=== PATIENT | female | born 1990 | race Caucasian/White ===

== ENCOUNTER 2017-04-14 21:47 | Emergency (ER) | payer OTHER ==
[2017-04-14 22:08] VITALS: TEMP 98.5
--- NOTE | 2017-04-14 22:52 | ED.PDOC ---
History of Present Illness - General Chief Complaint: Back Pain or Injury Stated Complaint: back pain Time Seen by Provider: 04/14/17 22:05 Source: patient Exam Limitations: no limitations - History of Present Illness Initial Comments: Patricia Connor 26 y/o female with history of sharp chronic low back for the last 2 years stating it all started after delivery of her 2 babies .Denies history of trauma to lower back or work related injuries in the past.No bowel or bladder dysfunction ,no tingling,no weakness Timing/Duration: 4-6 hours Improving Factors: rest Worsening Factors: movement Associated Symptoms: other - pain radiation to back of left leg Allergies/Adverse Reactions: Allergies Amoxicillin Adverse Reaction (Verified 06/04/16 18:08) Nandrolone [From Anabolin] Adverse Reaction (Verified 06/04/16 18:08) Home Medications: Ambulatory Orders Ciprofloxacin [Cipro] 500 mg PO BID #20 tab 06/04/16 Methocarbamol [Robaxin] 750 mg PO BID PRN #20 tab 04/14/17 Prednisone 10 mg PO BID #14 scotty 04/14/17 Tramadol HCl 50 mg PO TID PRN #20 tab 04/14/17 Review of Systems - Review of Systems Constitutional: States: no symptoms reported EENTM: States: no symptoms reported Respiratory: States: no symptoms reported Cardiology: States: no symptoms reported Gastrointestinal/Abdominal: States: no symptoms reported Genitourinary: States: no symptoms reported Musculoskeletal: States: see HPI, back pain Skin: States: no symptoms reported Neurological: States: no symptoms reported Endocrine: States: no symptoms reported Hematologic/Lymphatic: States: no symptoms reported Past Medical History (General) - Patient Medical History Hx Seizures: No Hx Stroke: No Hx Dementia: No Hx Asthma: No Hx of COPD: No Hx Cardiac Disorders: No Hx Congestive Heart Failure: No Hx Pacemaker: No Hx Hypertension: No Hx Thyroid Disease: No Hx Diabetes: No Hx Gastroesophageal Reflux: No Hx Renal Disease: No Hx Cancer: No Hx of HIV: No Hx Hepatitis C: No Hx MRSA: No Surgical History: cholecystectomy, other - intradermal contraceptive implant - Vaccination History Hx Tetanus, Diphtheria Vaccination: Yes Hx Influenza Vaccination: Yes Hx Pneumococcal Vaccination: No - Social History Hx Tobacco Use: No Hx Chewing Tobacco Use: No Hx Alcohol Use: No Hx Substance Use: No Hx Substance Use Treatment: No Hx Depression: No Hx Physical Abuse: No Hx Emotional Abuse: No Hx Suspected Abuse: No - Female History Patient is a Female of Child Bearing Age (10 -59 yrs old): Yes Hx Last Menstrual Period: 11/07/16 - intradermal contraception Patient : No - Triage Comment ED Triage Comment: Pt states she has chronic back pain for past 2 years and today it has gotten worse. Tramadol is not working Family Medical History - Family History Mother Family History: No Known Physical Exam - Physical Exam General Appearance: Alert, Comfortable, No apparent distress Eye Exam: bilateral normal Ears, Nose, Throat: hearing grossly normal, normal ENT inspection Neck: non-tender, full range of motion, supple Respiratory: chest non-tender, lungs clear, normal breath sounds, no respiratory distress Cardiovascular/Chest: normal peripheral pulses, regular rate, rhythm, no edema, no murmur Peripheral Pulses: radial,right: 2+, radial,left: 2+ Gastrointestinal/Abdominal: normal bowel sounds, non tender, soft, no organomegaly Back Exam: normal inspection, no CVA tenderness, decreased range of motion, muscle spasm Extremity: normal range of motion, non-tender, normal inspection Neurologic: no motor/sensory deficits, alert, oriented x 3, other - negative straight leg raising test bilaterally DTR: 2+: Patellar, left, Patellar, right Skin Exam: normal color, warm/dry Lymphatic: no adenopathy Progress - Results/Orders Results/Orders: Vital Signs - 8 hr 04/14/17 22:02 Temperature 98.5 F Pulse Rate [ 100 H left arm] Respiratory 16 Rate Blood Pressure 121/71 [Right Arm] O2 Sat by Pulse 99 Oximetry 04/14/17 22:52 URINE DRUG SCREEN, 7 ASSAY Stat URINALYSIS Stat Laboratory Results WBC 9.6 K/mm3 (4.8-10.8) 04/14/17 23:06 RBC 4.08 M/mm3 (4.20-5.40) L 04/14/17 23:06 Hgb 12.6 gm/dL (12.0-16.0) 04/14/17 23:06 Hct 36.7 % (36.0-47.0) 04/14/17 23:06 MCV 90.1 fl (81.0-99.0) 04/14/17 23:06 MCH 30.8 pg (27.0-31.0) 04/14/17 23:06 MCHC 34.3 g/dL (33.0-37.0) 04/14/17 23:06 RDW 13.7 % (11.5-14.5) 04/14/17 23:06 Plt Count 171 K/mm3 (130-400) 04/14/17 23:06 MPV 9.0 fl (7.40-10.4) 04/14/17 23:06 Absolute Neuts (auto) 6.00 K/uL (1.8-6.8) 04/14/17 23:06 Absolute Lymphs (auto) 2.80 K/uL (1.0-3.4) 04/14/17 23:06 Absolute Monos (auto) 0.80 K/uL (0.2-0.8) 04/14/17 23:06 Absolute Eos (auto) 0.00 K/uL (0.0-0.4) 04/14/17 23:06 Absolute Basos (auto) 0.00 K/uL (0.0-0.1) 04/14/17 23:06 Neutrophils % 62.4 % (42.0-78.0) 04/14/17 23:06 Lymphocytes % 28.8 % (20.0-50.0) 04/14/17 23:06 Monocytes % 8.1 % (2.0-9.0) 04/14/17 23:06 Eosinophils % 0.4 % (1.0-5.0) L 04/14/17 23:06 Basophils % 0.3 % (0.0-2.0) 04/14/17 23:06 Sodium 140 mmol/L (135-145) 04/14/17 23:06 Potassium 3.7 mmol/L (3.6-5.0) 04/14/17 23:06 Chloride 107 mmol/L (101-111) 04/14/17 23:06 Carbon Dioxide 27 mmol/L (21-31) 04/14/17 23:06 Anion Gap 9.7 (12-18) L 04/14/17 23:06 BUN 13 mg/dL (7-18) 04/14/17 23:06 Creatinine 0.93 mg/dL (0.6-1.3) 04/14/17 23:06 BUN/Creatinine Ratio 14.0 (10-20) 04/14/17 23:06 Random Glucose 90 mg/dL (70-105) 04/14/17 23:06 Serum Osmolality 279.0 mOsm/L (275-295) 04/14/17 23:06 Calcium 9.3 mg/dL (8.4-10.2) 04/14/17 23:06 Total Bilirubin 0.2 mg/dL (0.2-1.0) 04/14/17 23:06 AST 17 IU/L (10-42) 04/14/17 23:06 ALT 17 IU/L (10-60) 04/14/17 23:06 Alkaline Phosphatase 48 IU/L (42-121) 04/14/17 23:06 Serum Total Protein 7.3 gm/dL (6.4-8.2) 04/14/17 23:06 Albumin 4.8 g/dl (3.2-5.5) 04/14/17 23:06 Globulin 2.5 gm/dL (2.3-3.5) 04/14/17 23:06 Albumin/Globulin Ratio 1.9 (1.1-1.9) 04/14/17 23:06 Serum HCG, Qual Negative 04/14/17 23:06 Departure - Departure Clinical Impression: Low back pain Qualifiers: Back pain laterality: midline Sciatica presence: with sciatica Sciatica laterality: sciatica of left side Qualified Code(s): M54.42 - Lumbago with sciatica, left side Time of Disposition: 23:56 Disposition: Discharge to Home or Self Care Condition: Good Departure Forms: ED Discharge - Pt. Copy, Patient Portal Self Enrollment Instructions: DI for Back Pain With Sciatica Prescriptions: Methocarbamol [Robaxin] 750 mg PO BID PRN #20 tab PRN Reason: Muscle Spasms Prednisone 10 mg PO BID #14 scotty Tramadol HCl 50 mg PO TID PRN #20 tab PRN Reason: Pain Home Medications: Ambulatory Orders Ciprofloxacin [Cipro] 500 mg PO BID #20 tab 06/04/16 Methocarbamol [Robaxin] 750 mg PO BID PRN #20 tab 04/14/17 Prednisone 10 mg PO BID #14 scotty 04/14/17 Tramadol HCl 50 mg PO TID PRN #20 tab 04/14/17 Additional Instructions: NEED TO SIGN UP WITH PRIMARY MD PATIENT TO CALL FOR APPOINTMENT
[2017-04-14] MEDS ORDERED: KETOROLAC TROMETHAMINE INJ 60 MG/2 ML VIAL IM ONE (23:52)
[2017-04-14] MEDS ORDERED: ORPHENADRINE CITRATE 30 MG/ML AMP IM ONE (23:52)
[2017-04-14] MEDS ORDERED: traMADol HCL 50 MG (ER DISP) # 6 TABS PO ONE (23:53)
[2017-04-15 00:23] VITALS: BP 112/64; O2SAT 98
== END 2017-04-15 00:24 | disposition home or self-care (01) ==
LOC: ER 21:47
DX: M54.42 Lumbago with sciatica, left side (principal); Z88.3 Allergy status to other anti-infective agents; Z88.8 Allergy status to other drugs, medicaments and biological substances
CPT/HCPCS: 36415; 80053; 84703; 85025; J1885; J2360

== ENCOUNTER 2017-04-21 14:49 | Emergency (ER) | payer SELFPAY ==
--- NOTE | 2017-04-21 14:59 | ED.PDOC ---
History of Present Illness - General Chief Complaint: Laceration Stated Complaint: left hand laceration Time Seen by Provider: 04/21/17 14:49 Source: patient, RN notes reviewed, Vital Signs reviewed Additional Information: Pt cut her hand at home accidentally with her personally owned knife. Pt states her knife was clean. She was using it to scrape off/release some wax from her Scentsy scented wax curtis. Pt was able to apply direct pressure and a bandage to stop the bleeding at home. Pt states her Tetanus vaccination is up to date (within the past 5 years). - History of Present Illness Occurred: just prior to arrival Pain - Upper Extremity: moderate: Hand, left Method of Injury: incised - with personal knife - accidental Improving Factors: immobilization Worsening Factors: movement Allergies/Adverse Reactions: Allergies Amoxicillin Allergy (Verified 04/21/17 15:17) Hives Nandrolone [From Anabolin] Adverse Reaction (Verified 06/04/16 18:08) Home Medications: Ambulatory Orders Methocarbamol [Robaxin] 750 mg PO BID PRN #20 tab 04/14/17 Prednisone 10 mg PO BID #14 scotty 04/14/17 Tramadol HCl 50 mg PO TID PRN #20 tab 04/14/17 Review of Systems - Review of Systems Constitutional: States: no symptoms reported EENTM: States: no symptoms reported Respiratory: States: no symptoms reported Cardiology: States: no symptoms reported Gastrointestinal/Abdominal: States: no symptoms reported Genitourinary: States: no symptoms reported Musculoskeletal: States: no symptoms reported Skin: States: see HPI Neurological: States: no symptoms reported Endocrine: States: no symptoms reported Hematologic/Lymphatic: States: no symptoms reported Past Medical History (General) - Patient Medical History Hx Seizures: No Hx Stroke: No Hx Dementia: No Hx Asthma: No Hx of COPD: No Hx Cardiac Disorders: No Hx Congestive Heart Failure: No Hx Pacemaker: No Hx Hypertension: No Hx Thyroid Disease: No Hx Diabetes: No Hx Gastroesophageal Reflux: No Hx Renal Disease: No Hx Cancer: No Hx of HIV: No Hx Hepatitis C: No Hx MRSA: No - Vaccination History Hx Tetanus, Diphtheria Vaccination: Yes Hx Influenza Vaccination: Yes Hx Pneumococcal Vaccination: No - Social History Hx Tobacco Use: No Hx Chewing Tobacco Use: No Hx Alcohol Use: No Hx Substance Use: No Hx Substance Use Treatment: No Hx Depression: No Hx Physical Abuse: No Hx Emotional Abuse: No Hx Suspected Abuse: No - Female History Hx Last Menstrual Period: 11/07/16 - intradermal contraception Patient : No Family Medical History - Family History Mother Family History: No Known Physical Exam - Physical Exam General Appearance: Alert, Comfortable, No apparent distress, Well Developed, Well Groomed, Well Hydrated, Well Nourished Eyes, Ears, Nose, Throat Exam: PERRL/EOMI Neck: non-tender, full range of motion, supple, normal inspection Cardiovascular/Respiratory: regular rate, rhythm, no M/R/G, normal peripheral pulses, no JVD, no respiratory distress Abdominal Exam: non-tender Back Exam: normal inspection Shoulder Exam: normal inspection, non-tender, no evidence of injury, normal ROM Elbow/Forearm Exam: normal inspection, non-tender, no evidence of injury, normal ROM Wrist Exam: normal inspection, non-tender, no evidence of injury, normal ROM Hand Exam: laceration - about 2.5 cm over dorsal aspect of webspace between 1st and 2nd digit., limited ROM - due to some pain and swelling, but she is able to move in all planes., swelling - mild Neuro/Tendon: normal sensation, normal motor functions, normal tendon functions , responds to pain, no evidence tendon injury Mental Status: alert, oriented x 3 Progress - Progress Progress: 04/21/17 15:46 Pt cut her hand with her knife accidentally. She was trying to take wax off of a Scentsy hot wax curtis. She put pressure on her wound and was able to stop the bleeding. She reports full sensation and she has limited range of motion in all her digits. 04/21/17 15:54 She tolerated wound care and she does not appear to have any neurovascular deficits. Procedures - Laceration/Wound Repair Left Dorsal Head Wound Length (cm): 2.5 Wound's Depth, Shape: superficial, linear Wound Explored: clean Irrigated w/ Saline (cc's): 100 Anesthesia: 1% Lidocaine Volume Anesthetic (cc's): 8 Wound Repaired With: sutures - x3 interrupted Suture Size/Type: 3:0, prolene Number of Sutures: 3 Layer Closure?: No Departure - Departure Clinical Impression: Accidental laceration, Puncture wound Time of Disposition: 15:52 Disposition: Discharge to Home or Self Care Condition: Good Instructions: DI for Laceration Repair -- Simple Home Medications: Ambulatory Orders Methocarbamol [Robaxin] 750 mg PO BID PRN #20 tab 04/14/17 Prednisone 10 mg PO BID #14 scotty 04/14/17 Tramadol HCl 50 mg PO TID PRN #20 tab 04/14/17 Additional Instructions: Keep wound clean and dry. Stitches should come out in 5 to 7 days. Return to ER if concerns for infection - redness, swelling, pain, drainage.
[2017-04-21] MEDS ORDERED: LIDOCAINE 1% W/ EPINEPHRINE 20 ML VIAL INJ ONE (15:05)
[2017-04-21] MEDS ORDERED: LIDOCAINE 1% 10 ML VIAL INJ ONE ×2 (15:07→15:21)
[2017-04-21 15:35] VITALS: BP 126/77; TEMP 99.4; O2SAT 100
== END 2017-04-21 15:50 | disposition home or self-care (01) ==
LOC: ER 14:49
DX: S61.412A Laceration without foreign body of left hand, initial encounter (principal); Z88.3 Allergy status to other anti-infective agents; Z88.8 Allergy status to other drugs, medicaments and biological substances; W26.0XXA Contact with knife, initial encounter

== ENCOUNTER 2018-03-01 10:21 | Emergency (ER) | payer SELFPAY ==
[2018-03-01 10:31] VITALS: TEMP 98
--- NOTE | 2018-03-01 11:08 | ED.PDOC ---
History of Present Illness - General Chief Complaint: GI Problem Stated Complaint: Nausea/vomiting > 12 hrs Time Seen by Provider: 03/01/18 11:03 Information Source: patient Exam Limitations: no limitations - History of Present Illness Initial Comments: Patricia Connor 27 y/o female stated that she had multiple episopdes of nausea/ vomiting w/c started at 6 pm last night but no diarrhea.Denies ill contact did not eat anything different recently.Has mild abdominal crams during vomiting episodes.Had also achy throat prior to vomiting Abdominal Pain Onset Location: generalized abdomen Pain Radiation: no radiation Quality: mild Timing/Duration: 24 hours Improving Factors: nothing Worsening Factors: eating Associated Symptoms: denies symptoms, other - see hpi Review of Systems - Review of Systems Constitutional: States: no symptoms reported EENTM: States: see HPI Respiratory: States: no symptoms reported Cardiology: States: no symptoms reported Gastrointestinal/Abdominal: States: see HPI All other Systems: Reviewed and Negative, No Change from Baseline Past Medical History (General) - Patient Medical History Hx Seizures: No Hx Stroke: No Hx Dementia: No Hx Asthma: No Hx of COPD: No Hx Cardiac Disorders: No Hx Congestive Heart Failure: No Hx Pacemaker: No Hx Hypertension: No Hx Thyroid Disease: No Hx Diabetes: No Hx Gastroesophageal Reflux: No Hx Renal Disease: No Hx Cancer: No Hx of HIV: No Hx Hepatitis C: No Hx MRSA: No Surgical History: cholecystectomy - Vaccination History Hx Tetanus, Diphtheria Vaccination: Yes Hx Influenza Vaccination: Yes - 2017 Hx Pneumococcal Vaccination: No - Social History Hx Tobacco Use: No Hx Chewing Tobacco Use: No Hx Alcohol Use: No Hx Substance Use: No Hx Substance Use Treatment: No Hx Depression: No Hx Physical Abuse: No Hx Emotional Abuse: No Hx Suspected Abuse: No - Activities of Daily Living Patient Lives Alone: No - Female History Patient is a Female of Child Bearing Age (10 -59 yrs old): Yes Hx Last Menstrual Period: 01/25/18 Patient : No - Triage Comment ED Triage Comment: Pt has irregular menstrual cycles Family Medical History - Family History Mother Family History: No Known Living Status: Still Living Physical Exam - Physical Exam General Appearance: Alert, Comfortable, No apparent distress Eyes, Ears, Nose, Throat Exam: normal ENT inspection, pharyngeal erythema Neck: non-tender, full range of motion, supple Respiratory: lungs clear, normal breath sounds Cardiovascular/Chest: normal peripheral pulses, regular rate, rhythm, no murmur Peripheral Pulses: No deficit Gastrointestinal/Abdominal: normal bowel sounds, soft, tenderness - mid abdomen no peritoneal signs Extremity: non-tender, no pedal edema, no calf tenderness Neurologic: alert, oriented x 3 Skin Exam: normal color, warm/dry Lymphatic: no adenopathy Progress - Progress Progress: 03/01/18 11:11 Vital Signs - 24 hr 03/01/18 10:28 Temperature 98.0 F Pulse Rate [ 96 H Right Radial] Respiratory 18 Rate Blood Pressure 97/61 [Right Arm] O2 Sat by Pulse 98 Oximetry - Results/Orders Results/Orders: 03/01/18 11:04 IV Care:Saline Lock per Protoc QSHIFT 03/01/18 11:28 STREP A SCREEN CULTURE Urgent Laboratory Results - last 24 hr 03/01/18 03/01/18 03/01/18 11:28 11:28 11:28 WBC 5.3 RBC 4.61 Hgb 14.1 Hct 41.1 MCV 89.2 MCH 30.6 MCHC 34.2 RDW 13.0 Plt Count 151 MPV 9.3 Absolute Neuts (auto) 4.70 Absolute Lymphs (auto) 0.30 L Absolute Monos (auto) 0.30 Absolute Eos (auto) 0.00 Absolute Basos (auto) 0.00 Neutrophils % 88.4 H Lymphocytes % 5.4 L Monocytes % 5.7 Eosinophils % 0.1 L Basophils % 0.4 Sodium 137 Potassium 3.9 Chloride 104 Carbon Dioxide 24 Anion Gap 12.9 BUN 15 Creatinine 0.98 BUN/Creatinine Ratio 15.3 Random Glucose 117 H Serum Osmolality 275.7 Calcium 9.3 Total Bilirubin 1.4 H AST 339 H ALT 383 H Alkaline Phosphatase 194 H Serum Total Protein 7.6 Albumin 4.7 Globulin 2.9 Albumin/Globulin Ratio 1.6 Lipase 27 Serum HCG, Qual Negative Urine Color Urine Appearance Urine pH Ur Specific Mccune Urine Protein Urine Glucose (UA) Urine Ketones Urine Blood Urine Nitrite Urine Bilirubin Urine Urobilinogen Ur Leukocyte Esterase Urine RBC Urine WBC Ur Epithelial Cells Urine Bacteria Urine Mucus Urine Opiates Screen Urine Barbiturates Ur Phencyclidine Scrn U Amphetamin/Meth Scrn U Benzodiazepines Scrn U Cocaine Metab Screen U Cannabinoids Screen Group A Strep DNA 03/01/18 03/01/18 03/01/18 11:28 11:55 12:00 WBC RBC Hgb Hct MCV MCH MCHC RDW Plt Count MPV Absolute Neuts (auto) Absolute Lymphs (auto) Absolute Monos (auto) Absolute Eos (auto) Absolute Basos (auto) Neutrophils % Lymphocytes % Monocytes % Eosinophils % Basophils % Sodium Potassium Chloride Carbon Dioxide Anion Gap BUN Creatinine BUN/Creatinine Ratio Random Glucose Serum Osmolality Calcium Total Bilirubin AST ALT Alkaline Phosphatase Serum Total Protein Albumin Globulin Albumin/Globulin Ratio Lipase Serum HCG, Qual Urine Color Rossana H Urine Appearance Clear Urine pH 7.0 Ur Specific Mccune 1.020 Urine Protein 30 Urine Glucose (UA) Negative Urine Ketones Trace Urine Blood Negative Urine Nitrite Negative Urine Bilirubin Moderate Urine Urobilinogen 4.0 H Ur Leukocyte Esterase Negative Urine RBC 0-1 Urine WBC 1-3 Ur Epithelial Cells 3-5 Urine Bacteria Rare Urine Mucus Trace Urine Opiates Screen Negative Urine Barbiturates Negative Ur Phencyclidine Scrn Negative U Amphetamin/Meth Scrn Negative U Benzodiazepines Scrn Negative U Cocaine Metab Screen Negative U Cannabinoids Screen Negative Group A Strep DNA Negative - EKG/XRAY/CT CT Ordered: Yes - abd/pelvis-no acute abnormalities Departure - Departure Clinical Impression: Elevated liver function tests Vomiting Qualifiers: Vomiting type: unspecified Vomiting Intractability: non-intractable Nausea presence: with nausea Qualified Code(s): R11.2 - Nausea with vomiting, unspecified Time of Disposition: 13:00 Disposition: Discharge to Home or Self Care Departure Forms: ED Discharge - Pt. Copy, Patient Portal Self Enrollment Instructions: DI for Vomiting -- Adult, Nausea and Vomiting-Adult Diet: bland diet, other - small frequent meal Prescriptions: Promethazine Tab [Phenergan Tablet] 50 mg PO .Q4H PRN #30 tab PRN Reason: Nausea/Vomiting Home Medications: Ambulatory Orders Promethazine Tab [Phenergan Tablet] 50 mg PO .Q4H PRN #30 tab 03/01/18 Additional Instructions: Avoid greasy ,spicy dairy foods until better;Follow up with primary Md 04 March 2018
[2018-03-01] MEDS: LACTATED RINGERS 1,000 ML IVS ONE (11:24)
[2018-03-01 12:47] VITALS: BP 104/66; O2SAT 96
--- NOTE | 2018-03-01 12:56 | CT ---
EXAM DESCRIPTION: Abdoment/Pelvis w/o Contrast: Computed Tomography. CLINICAL HISTORY: elevated LFT COMPARISON: None. TECHNIQUE: Spiral-axial scans 5.0 mm intervals through the abdomen and pelvis without oral or IV contrast. Coronal and sagittal 2.0 mm reconstructions. Total Exam DLP: 324.35 mGy-cm. This exam was performed according to our departmental CT dose-optimization program which includes automated exposure control, adjustment of the mA and/or kV according to patient size and/or use of iterative reconstruction technique; to reduce radiation dose to as low as reasonably achievable (ALARA). Limited evaluation of soft tissue without IV contrast. FINDINGS: Lung bases and pleura: Negative. Liver, stomach, spleen, and adrenal glands: Normal density liver and Right lobe long axis is 17.5 cm. No intrahepatic biliary dilatation. Smooth capsule with no ascites. Stomach not distended. Other solid organs are unremarkable.. Pancreas, Gallbladder, and Ducts: Surgical clips in the gallbladder fossa with no fluid. Common bile duct dilated. Pancreas grossly normal. Limited due to lack of IV contrast and paucity of surrounding fat for delineation of the borders. Kidneys and Ureters: Negative. Mesentery: Minimal. No stranding or fascial thickening. No free fluid or free peritoneal air. Aorta: Aortic lymph nodes are noted with short axis diameters 9 to 10 mm. Small Bowel: No significant distention. Borders difficult to delineate due to lack of fat and contrast. Terminal Ileum/Cecum: Normal caliber. Gas and fecal material in the cecum. Normal caliber of the appendix. No reactive changes or fluid in the fat. Colon: Diffuse fecal matter and gas. Minimal distention proximally. Pelvic Organs: No free fluid. Uterus retroflexed or retroverted. 2.5 cm fluid density in the right adnexa. Left ovary not well seen. Minimal fluid in the cul-de-sac. Spine and Bony Pelvis: Negative. Abdominal Wall/Back Soft Tissues: Unremarkable. IMPRESSION: Limited study due to lack of IV and oral contrast. Also minimal mesentery and fat around the organs, making their margins difficult to delineate Borderline hepatomegaly. No ascites. Other solid organs are negative. Small lymph nodes around the aorta and possibly in the mesentery. No free fluid or free air. 2.5 cm cyst in the right ovary. Minimal fluid in the cul-de-sac. Consider nonemergent abdomen pelvis CT follow-up with IV and oral contrast and nonemergent pelvic ultrasound. Electronically signed by: Fabio Silva MD 03/01/2018 12:55 PM CDT
== END 2018-03-01 13:12 | disposition home or self-care (01) ==
LOC: ER 10:21
DX: R11.2 Nausea with vomiting, unspecified (principal); R79.89 Other specified abnormal findings of blood chemistry